=== PATIENT | female | born 1965 | race Caucasian/White ===

== ENCOUNTER 2016-07-30 16:11 | Inpatient (IN) | payer OTHER ==
[~2016-07-30] VITALS: Ht 167.6 cm; Wt 54.1 kg
[2016-07-30 17:41] LABS: BASOPHIL COUNT 0.1 K/uL (0-0.1); EOSINOPHIL (%) 0.5 % (0-5); EOSINOPHIL COUNT 0.1 K/uL (0-0.3); HEMATOCRIT 45.7 % (36.0-46.0); IMMATURE GRANULOCYTE (%) 0.4 % (0.0-0.7); INSTRUMENT ABS NEUTROPHIL CT 7.1 K/uL; LYMPHOCYTE COUNT 1.9 K/uL (1.0-2.8); MCH 32.4 PG (29.0-34.0); MCHC 34.6 G/DL (30.0-36.0); MCV 93.6 FL (83-99); MEAN PLAT.VOLUME 9.1 uM^3 (9.5-12.4); MONOCYTE (%) 8.4 % (3-12); MONOCYTE COUNT 0.8 K/uL (0-0.8); NEUTROPHIL COUNT 7.1 K/uL (1.8-6.4); PLATELET COUNT 261 K/uL (156-360); RBC DIS.WIDTH-CV 13.5 % (11.8-14.6); RBC DIS.WIDTH-SD 46.6 % (39-53); RED BLOOD COUNT 4.88 M/uL (3.80-5.20)
[2016-07-30 17:49] LABS: CHLORIDE 107 mEq/L (99-109); POTASSIUM 4.1 mEq/L (3.7-5.4); SODIUM 141 mEq/L (136-147)
[2016-07-30 17:52] LABS: GLUCOSE 99 mg/dL (70-99)
[2016-07-30 17:53] LABS: ANION GAP 10 MEQ/L (2-14)
[2016-07-30 17:54] LABS: TOTAL BILIRUBIN 0.5 mg/dL (0.0-1.0)
[2016-07-30 17:55] LABS: SERUM ETHYL ALCOHOL < 10 mg/dL
[2016-07-30 17:56] LABS: ALKALINE PHOSPHATASE 64 IU/L (3-129); GFR ESTIMATE (CALCULATED) > 59 mL/min/
[2016-07-30 17:57] LABS: UREA NITROGEN (BUN) 11 mg/dL (9-23)
[2016-07-30 17:59] LABS: SALICYLATE < 5.0 MG/DL (15-30)
[2016-07-30 18:05] LABS: QUANTITATIVE HCG < 4.0 MIU/ML
[2016-07-30 18:07] LABS: ADD MIUA? YES; BILIRUBIN NEGATIVE; BLOOD SMALL; COLOR YELLOW ((YELLOW)); GLUCOSE (STRIP) NEGATIVE; KETONES NEGATIVE; LEUKOCYTES MODERATE; NITRITE POSITIVE; PROTEIN (STRIP) NEGATIVE; SPECIFIC GRAVITY 1.009 (1.000-1.030); UROBILINOGEN 0.2 MG/DL (0.2-1.0)
[2016-07-30 18:21] LABS: AMPHETAMINE NEGATIVE (500 ng/mL); BARBITURATES NEGATIVE (200 ng/mL); BENZODIAZEPINES PRESUMPTIVE POSITIVE (150 ng/mL); COCAINE NEGATIVE (150 ng/mL); METHADONE NEGATIVE (200 ng/mL); METHAMPHETAMINE NEGATIVE (500 ng/mL); OPIATES (MORPHINE) NEGATIVE (100 ng/mL); OXYCODONE NEGATIVE (100 ng/mL); PHENCYCLIDINE NEGATIVE (25 ng/mL); PROPOXYPHENE NEGATIVE (300 ng/mL); THC CANNABINOIDS PRESUMPTIVE POSITIVE (50 ng/mL); TRICYCLIC ANTIDEPRESSANTS NEGATIVE (300 ng/mL)
[2016-07-30 18:22] LABS: ADD MEDTOX COMMENT Y; INTERNAL CONTROLS VALID? YES
[2016-07-30 18:23] LABS: BACTERIA 3+ /HPF; EPITHELIAL CELLS RARE /HPF; HYALINE CASTS 0-5 /LPF; MUCUS TRACE /LPF; RED BLOOD CELLS 0-5 /HPF (0-5); UCUL ADDED? NO; WHITE BLOOD CELLS 0-5 /HPF (0-5)
[2016-07-30 18:42] LABS: BENZODIAZEPINES, URINE SCREEN POSITIVE (200 ng/mL)
[2016-07-31 01:40] VITALS: BP 120/78
[2016-07-31 07:48] VITALS: BP 148/84
[2016-07-31 11:49] VITALS: BP 152/98
[2016-07-31 15:34] VITALS: BP 139/88
[2016-08-01 07:52] VITALS: BP 120/81
[2016-08-01 15:55] VITALS: BP 131/83
[2016-08-02 09:16] VITALS: BP 136/95
[2016-08-02 16:12] VITALS: BP 154/91
[2016-08-02 18:29] VITALS: BP 137/82
[2016-08-03 07:54] VITALS: BP 120/79
[2016-08-03] MEDS ORDERED: HYDROXYZINE PAM25 MG PO (09:33)
== END 2016-08-03 14:54 | disposition home or self-care (01) | DRG 882 ==
LOC: EME 16:11 → 1WEST 07-31 00:37 → EDOF 07-31 00:37 → 1WEST 07-31 01:12
PROVIDERS: Emergency Medicine
DX: F43.25 Adjustment disorder with mixed disturbance of emotions and conduct (principal); N39.0 Urinary tract infection, site not specified; F17.200 Nicotine dependence, unspecified, uncomplicated; F12.20 Cannabis dependence, uncomplicated; Z59.0 Homelessness; F43.23 Adjustment disorder with mixed anxiety and depressed mood
CPT/HCPCS: 80053; 81003; 84702; 84999; 85025; 90837; 97150 GO; 97165 GO; 99281; 99285; G0480; J0696; J1630; J2060

== ENCOUNTER 2016-08-09 15:21 | Emergency (ER) | payer OTHER ==
[~2016-08-09] VITALS: Ht 168.9 cm; Wt 57.2 kg
[~2016-08-09 15:21] MED LIST: HYDROXYZINE PAM25 MG PO
[2016-08-09] MEDS ORDERED: HYDROXYZINE HCL25 MG PO (17:41)
[2016-08-09 17:51] VITALS: BP 149/93
== END 2016-08-09 17:51 | disposition home or self-care (01) ==
LOC: EME 15:21
DX: Z76.0 Encounter for issue of repeat prescription (principal); F41.9 Anxiety disorder, unspecified; Z72.0 Tobacco use
CPT/HCPCS: 99281; 99284

== ENCOUNTER 2017-11-03 00:02 | Emergency (ER) | payer OTHER ==
[~2017-11-03] VITALS: Ht 167.6 cm; Wt 60.0 kg
[~2017-11-03 00:02] MED LIST changes: +HYDROXYZINE HCL25 MG PO
[2017-11-03 01:27] LABS: HEMATOCRIT 44.8 % (36.0-46.0); HEMOGLOBIN 15.8 G/DL (11.9-15.5); MCH 33.3 PG (29.0-34.0); MCHC 35.3 G/DL (30.0-36.0); MCV 94.3 FL (83-99); PLATELET COUNT 279 K/uL (156-360); RBC DIS.WIDTH-CV 13.5 % (11.8-14.6); RED BLOOD COUNT 4.75 M/uL (3.80-5.20); WHITE BLOOD COUNT 11.6 K/uL (4.1-10.2)
[2017-11-03 01:39] LABS: ALBUMIN 4.7 g/dL (3.2-4.8); CHLORIDE 106 mEq/L (99-109); POTASSIUM 3.6 mEq/L (3.7-5.4); SODIUM 141 mEq/L (136-147)
[2017-11-03 01:41] LABS: GLUCOSE 108 mg/dL (70-99)
[2017-11-03 01:42] LABS: TOTAL PROTEIN 7.9 g/dL (6.4-8.3)
[2017-11-03 01:43] LABS: TOTAL BILIRUBIN 0.4 mg/dL (0.0-1.0)
[2017-11-03 01:44] LABS: SERUM ETHYL ALCOHOL 69 mg/dL
[2017-11-03 01:45] LABS: ALKALINE PHOSPHATASE 87 IU/L (3-129); CREATININE 0.8 mg/dL (0.6-1.3); GFR ESTIMATE (CALCULATED) > 59 mL/min/
[2017-11-03 01:46] LABS: UREA NITROGEN (BUN) 7 mg/dL (9-23)
[2017-11-03 01:47] LABS: AST (GOT) 24 IU/L (2-34)
[2017-11-03 01:48] LABS: ALT (GPT) 22 IU/L (3-49)
[2017-11-03 02:41] LABS: AMPHETAMINE NEGATIVE (500 ng/mL); BARBITURATES NEGATIVE (200 ng/mL); BENZODIAZEPINES PRESUMPTIVE POSITIVE (150 ng/mL); BUPRENORPHINE NEGATIVE (10 ng/mL); COCAINE NEGATIVE (150 ng/mL); METHADONE NEGATIVE (200 ng/mL); METHAMPHETAMINE NEGATIVE (500 ng/mL); OPIATES (MORPHINE) NEGATIVE (100 ng/mL); OXYCODONE NEGATIVE (100 ng/mL); PHENCYCLIDINE NEGATIVE (25 ng/mL); PROPOXYPHENE NEGATIVE (300 ng/mL); THC CANNABINOIDS PRESUMPTIVE POSITIVE (50 ng/mL); TRICYCLIC ANTIDEPRESSANTS NEGATIVE (300 ng/mL)
[2017-11-03 03:04] VITALS: BP 186/85
[2017-11-03 06:03] LABS: BENZODIAZEPINES, URINE SCREEN POSITIVE (200 ng/mL)
== END 2017-11-03 03:04 | disposition home or self-care (01) ==
LOC: EME 00:02
PROVIDERS: Emergency Medicine
DX: F43.21 Adjustment disorder with depressed mood (principal); F10.129 Alcohol abuse with intoxication, unspecified; Y90.3 Blood alcohol level of 60-79 mg/100 ml; Z72.0 Tobacco use; Z88.6 Allergy status to analgesic agent; Z88.8 Allergy status to other drugs, medicaments and biological substances
CPT/HCPCS: 80053; 84999; 85027; 90837; 99281; 99284; G0480